=== PATIENT | female | born 1945 | race Caucasian/White ===

== ENCOUNTER → 2024-03-17 09:07 | Outpatient (REF) | payer MEDICARE, OTHER, SELFPAY | LOC: HWWDC 09:07 | PROVIDERS: ATTENDING PHYSICIAN Family Medicine | DX: Z12.31 Encounter for screening mammogram for malignant neoplasm of breast (principal) | CPT/HCPCS: 77063; 77067 ==

== ENCOUNTER 2024-10-15 09:54 | Emergency (ER) | payer MEDICARE, OTHER, SELFPAY ==
[2024-10-15 09:56] VITALS: BP 151/94
--- NOTE | 2024-10-15 11:13 | ED.GENMED ---
History of Present Illness
General
Chief Complaint: Dizziness
Source: patient
Exam Limitations: none
Time Seen by Provider: 10/15/24 11:03
History of Present Illness
History of Present Illness:
79-year-old female presents complaining of generalized weakness and shakiness. She also notes numbness to the arms and face bilaterally. She denies chest pain. She notes lower abdominal bloating and urinary symptoms. The symptoms exacerbated
when her got admitted to the hospital yesterday. No fever. No flank pain. She notes at times she feels unsteady when she walks.
Past History
Past History
ED Past Medical History: Hypercholesterolemia
ED Past Surgical History: Appendectomy
Patient has exhibited threatening behavior?: No
PSI?: No
Phy Exam
Physical Exam
Physical Exam:
General: Well-appearing but anxious female no acute respiratory distress
HEENT: Normocephalic atraumatic
Heart: Regular rate and rhythm
Lungs: Clear no wheeze
Abd: soft, mild tenderness to lower abdomen. No guarding
Ext: no cyanosis
Neuro: alert and oriented. mild tremor noted bilaterally. No unilateral deficit. No slurred speech
Course
Orders/Labs/Results
Orders:
Orders
10/15/24 10:00
ECG [Electrocardiogram (*1)] Urgent
Reason for Study: Vertigo / Dizzy
EKG- Treatment ONCE
10/15/24 11:12
CT Head W/o Iv Contrast Urgent
Comment:
Reason For Exam: weakness
CR Obstruct Series W/pa Chest Urgent
Comment:
Reason For Exam: weakness, abdominal bloating
10/15/24 11:25
Complete Blood Count/With Diff Urgent
Comprehensive Metabolic Panel Urgent
TSH Reflex To Free T4 Urgent
Urinalysis Reflex To Culture Urgent
Date Specimen was Collected: 10/15/24
Time Specimen was Collected: 11:20
10/15/24 12:57
Crisis Consult Urgent
Reason for Consult: Anxiety
Abnormal Lab Results
10/15/24
11:25
WBC 11.4 H 10^3/uL
(4.8-10.8)
Hgb 16.2 H g/dL
(12.0-16.0)
Absolute Neuts (auto) 9.6 H 10^3/uL
(1.4-6.5)
Neutrophils % 84.0 H %
(42.2-75.2)
Lymphocytes % 10.7 L %
(20.5-51.1)
Chloride 111 H mmol/L
(98-107)
Glucose 114 H mg/dl
(70-99)
Total Bilirubin 2.9 H mg/dl
(0.2-1.3)
10/15/24 11:25
10/15/24 11:25
Vital Signs
Initial and Last Documented VS:
Initial Vital Signs
Temp Pulse Resp BP Pulse Ox
97.5 F 98 16 151/94 98
10/15/24 09:56 10/15/24 09:56 10/15/24 09:56 10/15/24 09:56 10/15/24 09:56
Last Documented Vital Signs
Temp Pulse Resp BP Pulse Ox
97.5 F 76 16 137/81 98
10/15/24 09:56 10/15/24 13:45 10/15/24 13:45 10/15/24 13:00 10/15/24 13:45
MDM/Problems Addressed
Differential Diagnosis Includes:
Patient with generalized weakness and numbness both sides with associated tremor and shakiness. Differential could include electrolyte abnormality versus anemia versus anxiety. No unilateral findings to suggest CVA. Will check labs. She has some
Slight hoarseness and cough as well as lower abdominal discomfort. Obstruction series pending CT head pending
*Critical Care Note
Total Time (30-74mins, 75-104mins- exclusive of procedures): Not Applicable
Update Note
Update Note:
Workup here essentially unremarkable. CT head negative obstruction series normal urinalysis normal. Electrolytes and blood count okay. I suspect majority of symptoms may be related to underlying anxiety. Family did request to speak to the crisis
department. Crisis department spoke with them and gave them outpatient resources. Patient has an appoint with her family doctor in 2 days. She does have Klonopin to use at home if needed. No indication for admission. Stable for discharge
ED Attending Note
-
Portions of this chart may have been created with voice recognition software.� Occasional wrong word or��sound alike� substitutions may have occurred due to the inherent limitations of voice recognition software.
Discharge Plan
Departure
Patient Disposition: Home (Routine Discharge)
Date of Disposition: 10/15/24
Time of Disposition: 14:19
Patient with high blood pressure during this ER visit?: No
Discharge Problem:
Fatigue
Instructions: Dizziness
Referrals:
Alexandre Ramírez MD [Family Provider, Family Practice]
Activity Restrictions/Additional Instructions:
Rest. Drink plenty of fluids. Return if worse otherwise follow-up with your family doctor. You may use your Klonopin at home if you need to for acute anxiety
Interventions
Interventions:
*General Assessment Last Done: 10/15/24 11:27
*ED- Fall Risk Assessment Last Done: 10/15/24 11:27
*ED COVID-19 Vaccine History Last Done: 10/15/24 11:27
ED- Neurological Assessment Last Done: 10/15/24 11:28
ED Swallowing Screen Last Done: 10/15/24 11:29
Discharge Date and Time
Print Language: GREENLAND[place]
[2024-10-15 11:20] VITALS: BP 151/89
[2024-10-15 11:26] VITALS: BMI 20.7
[2024-10-15 11:32] LABS: % Basophils 0.2 % (0-2); % Eosinophils 0.1 % (0-6); % Immature Granulocytes 0.4 % (0-0.5); % Lymphocytes 10.7 % (20.5-51.1); % Monocytes 4.6 % (1.7-9.3); Absolute Lymphocytes 1.2 10^3/uL (1.2-3.4); Absolute Monocytes 0.5 10^3/uL (0.1-0.6); Absolute Neutrophils 9.6 10^3/uL (1.4-6.5); Hematocrit 46.9 % (37.0-47.0); Hemoglobin 16.2 g/dL (12.0-16.0); Mean Corp Hgb Conc. 34.5 g/dL (33.0-37.0); Mean Corpuscular Hgb 30.7 pg (27.0-31.0); Mean Corpuscular Volume 88.8 fL (81.0-99.0); Mean Platelet Volume 10.3 fL (7.4-10.4); Nucleated Red Blood Cells % 0 %; Platelet Count 216 10^3/uL (130-400); Red Blood Cell Count 5.28 10^6/uL (4.20-5.40); White Blood Cell Count 11.4 10^3/uL (4.8-10.8)
[2024-10-15 11:46] LABS: Urine Albumin Negative (Neg - Trace); Urine Bilirubin Negative (Negative); Urine Character Clear (Clear); Urine Color Yellow; Urine Glucose Negative (Negative); Urine Ketone Negative (Negative); Urine Leukocyte Negative (Negative); Urine Nitrite Negative (Negative); Urine Occult Blood Negative (Negative); Urine Specific Gravity 1.005 (<1.030); Urine Urobilinogen Negative (Neg - 1+)
[2024-10-15 11:49] LABS: ALT (SGPT) 21 U/L (0-35); AST (SGOT) 29 U/L (14-36); Albumin 4.4 g/dl (3.5-5.0); Alkaline Phosphatase 68 U/L (38-126); Blood Urea Nitrogen 16 mg/dl (7-17); Calcium 9.8 mg/dl (8.4-10.2); Carbon Dioxide 27 mmol/L (22-30); Chloride 111 mmol/L (98-107); Estimated Creatinine Clearance 52 ml/min; Glucose 114 mg/dl (70-99); Potassium 4.2 mmol/L (3.5-5.1); Sodium 143 mmol/L (135-145); Total Bilirubin 2.9 mg/dl (0.2-1.3); Total Protein 7.1 g/dl (6.3-8.2); eGFR > 60.00
[2024-10-15 12:00] VITALS: BP 134/75
[2024-10-15 12:27] LABS: TSH Reflex To Free T4 0.85 uIU/ml (0.47-4.68)
[2024-10-15 13:00] VITALS: BP 137/81
[2024-10-15 14:00] VITALS: BP 131/80
== END 2024-10-15 14:35 | disposition home or self-care (01) ==
LOC: EMR 09:54
PROVIDERS: Physician Assistant; EMERGENCY PHYSICIAN Student in an Organized Health Care Education/Training Program; FAMILY PHYSICIAN Family Medicine
DX: R42 Dizziness and giddiness (principal); R53.83 Other fatigue; R53.1 Weakness; E78.00 Pure hypercholesterolemia, unspecified; F41.9 Anxiety disorder, unspecified; Z86.73 Personal history of transient ischemic attack (TIA), and cerebral infarction without residual deficits; Z90.49 Acquired absence of other specified parts of digestive tract
CPT/HCPCS: 99284; 70450; 74022; 80053; 81003; 84443; 85025; 93005